=== PATIENT | female | born 1995 | race Caucasian/White ===

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

== ENCOUNTER 2017-09-29 01:26 | Emergency (ER) | payer BC ==
[~2017-09-29] VITALS: Ht 152.4 cm; Wt 45.3 kg
[2017-09-29 01:30] VITALS: TEMP 36.8; Ht 152.4 cm; Wt 45.3 kg
[2017-09-29] MEDS ORDERED: ONDANSETRON INJ 2 MG/ML 2 ML VIAL IV STA ×2 (01:57→03:09)
[2017-09-29] MEDS ORDERED: DEXAMETHASONE SOD INJ 4 MG/ML VIAL IV STA (01:57)
[2017-09-29] MEDS ORDERED: DiphenhydrAMINE HCL 50 MG/ML VIAL IV STA (01:57)
[2017-09-29] MEDS ORDERED: FAMOTIDINE 20MG/102 ML D5W IV STA (01:57)
[2017-09-29] MEDS ORDERED: DULO60CA44 PO (04:19)
[2017-09-29] MEDS ORDERED: PRED50TA PO (04:34)
--- NOTE | 2017-09-29 04:37 | EMERGENCY ROOM VISIT NOTE ---
History First contact with patient: 01:36 Chief Complaint: ALLERGIC REACTION Stated Complaint: ALLERGIC REACTION-HAD EPI PEN ALREADY History of Present Illness The patient is a 21 year old female who presents to the Emergency Room with complaints of an allergic reaction. The patient states that she was exposed to tree nuts and is allergic to tree nuts. She admits that she was drinking some alcohol tonight and states that when she got home, she ate a few bites of her roommates lean cuisine. She initially did not realize that this contained treatments. She began feeling funny and developed a slightly itchy throat and used her EpiPen immediately. This occurred 20 minutes prior to arrival. She denies any rash, difficulty breathing, difficulty swallowing, or vomiting at this time. She does report she is slightly nauseous. Review of Systems A complete 10 point review of systems was reviewed with the patient with pertinent positives and negatives as per history of present illness. All else were negative. Past Medical/Surgical History Medical Problems: (1) Tree nut allergy Social History Smoking Status: Never Smoker Occupation Status: [employer] Current/Historical Medications Scheduled Duloxetine Hcl (Cymbalta), 60 MG PO DAILY Loratadine (Claritin), 10 MG PO DAILY Prednisone (Prednisone), 50 MG PO DAILY Scheduled PRN Epinephrine (Epipen), 0.3 MG IM UD PRN for ALLERGIC REACTION Physical Exam Vital Signs Date Time Temp Pulse Resp B/P (MAP) Pulse Ox O2 Delivery O2 Flow Rate FiO2 09/29/17 04:43 90 18 121/82 97 09/29/17 04:40 97 09/29/17 03:19 110 18 125/88 96 Room Air 09/29/17 02:23 Room Air 09/29/17 01:40 118 09/29/17 01:30 36.8 124 20 122/80 97 Room Air Physical Exam VITALS: Vitals are noted on the nurse's note and reviewed by myself. Vital signs stable. GENERAL: This is a 21-year-old female, in no acute distress, nondiaphoretic, well-developed well-nourished. SKIN: The skin was without rashes. HEAD: Normocephalic atraumatic. EARS: External auditory canals clear, tympanic membranes pearly mims without erythema or effusion bilaterally. EYES: Pupils equal round and reactive to light and accommodation. MOUTH: Mucous membranes moist. Tonsils are not enlarged. Pharynx without erythema or exudate. Airway patent. NECK: Supple without nuchal rigidity. No lymphadenopathy. HEART: Regular rate and rhythm without murmurs gallops or rubs. LUNGS: Clear to auscultation bilaterally without wheezes, rales or rhonchi. No retractions or accessory muscle use. ABDOMEN: Positive bowel sounds x 4. Soft, nontender to palpation. NEURO: Patient was alert and oriented to person place and time. Medical Decision & Procedures Medications Administered Medications (Trade) Dose Ordered Sig/Chetna Route Start Time Stop Time Status Last Admin Dose Admin Dexamethasone Sodium Phosphate (Decadron Inj) 10 mg NOW STAT IV 09/29/17 01:57 09/29/17 02:00 DC 09/29/17 02:14 10 MG Diphenhydramine HCl (Benadryl Inj) 25 mg NOW STAT IV 09/29/17 01:57 09/29/17 02:00 DC 09/29/17 02:15 25 MG Ondansetron HCl (Zofran Inj) 4 mg NOW STAT IV 09/29/17 01:57 09/29/17 02:00 DC 09/29/17 02:15 4 MG Famotidine (Pepcid 20mg/100 ml) 20 mg ONE STAT IV 09/29/17 01:57 09/29/17 02:00 DC 09/29/17 01:57 20 MG Ondansetron HCl (Zofran Inj) 4 mg NOW STAT IV 09/29/17 03:09 09/29/17 03:10 DC 09/29/17 03:18 4 MG ED Course The patient was evaluated as above. Labs were drawn and IV access was obtained. Patient was medicated with 10 mg Decadron, 25 mg Benadryl, 20 mg Pepcid, and 4 mg Zofran. Patient reported continued nausea and was given an additional 4 mg Zofran. Patient was reevaluated and was feeling much better. She is requesting discharge home. Discharge instructions were reviewed with the patient. The patient verbalized understanding of my assessment and treatment plan and was discharged home in good condition. Medical Decision Differential diagnosis includes allergic reaction, anaphylaxis, among others. The patient is a 21-year-old female who presents today complaining of an allergic reaction. The patient is well-appearing on arrival to the ER. She has no hives, difficulty breathing or difficulty swallowing. There is no evidence of anaphylaxis at this time. Patient has already used her EpiPen. She was given steroids, Benadryl, Pepcid. She was reporting nausea but I question if this was possibly related to her alcohol use. She was treated with Zofran with relief. She will be given a Medrol Dosepak. Based on the patient's presentation and work up, I feel the patient is stable for outpatient treatment. The patient was educated to return to the emergency department for any worsening of their current condition or new/concerning symptoms. She will follow up with S as needed. Medication Reconcilliation Current Medication List: was personally reviewed by sd Blood Pressure Screening Patient's blood pressure: Normal blood pressure Impression Primary Impression: Allergic reaction Departure Information Dispostion Home / Self-Care Condition GOOD Prescriptions Prednisone (Prednisone) 50 Mg Tab 50 MG PO DAILY for 4 Days, #4 TAB Prov: Christina De La Vega .GUILLE 09/29/17 Referrals Rk Funez M.D. (PCP) Patient Instructions My [facility] Additional Instructions You have been treated in the Emergency Department for an Allergic Reaction. You have been treated and monitored in the Emergency Department appropriately. You should take Benadryl (diphenhydramine) 25-50 mg orally every 4-6 hours for the next 3-4 days or as needed for symptoms. You have been prescribed Prednisone 50 mg to be taken orally once a day for the next 4 days. This is an anti-inflammatory medicine to be used to help minimize your symptoms. You should take the COMPLETE course of the medication. As with every Emergency Department visit, you should follow-up with your primary care provider in 2-3 days for reevaluation. Use her EpiPen as needed for symptoms of a severe allergic reaction. Return to the Emergency Department if your current symptoms worsen despite treatment course outlined above, or if you develop any of the following symptoms : wheezing, tongue or face swelling, tightness in your throat, shortness of breath, or fainting. Problem Qualifiers Primary Impression: Allergic reaction Encounter type: initial encounter Qualified Codes: T78.40XA - Allergy, unspecified, initial encounter
[2017-09-29 04:43] VITALS: BP 121/82; PULSE 90; O2SAT 97
== END 2017-09-29 04:43 | disposition home or self-care (01) ==
LOC: C.EDB 01:27
DX: T78.40XA Allergy, unspecified, initial encounter (principal); X58.XXXA Exposure to other specified factors, initial encounter; Z79.899 Other long term (current) drug therapy